=== PATIENT | male | born 1955 | race Caucasian/White ===

== ENCOUNTER 2022-06-25 09:01 | Emergency (ER) | payer OTHER ==
[~2022-06-25] VITALS: Ht 182.9 cm; Wt 86.2 kg
[2022-06-25] MEDS ORDERED: CEPHALEXIN500 M1 PO (10:54)
== END 2022-06-25 11:29 | disposition home or self-care (01) ==
LOC: ED 09:01
DX: S60.512A Abrasion of left hand, initial encounter (principal); L03.114 Cellulitis of left upper limb; X58.XXXA Exposure to other specified factors, initial encounter
CPT/HCPCS: 64450; 99283-25; A9270